=== PATIENT | female | born 1975 | race Caucasian/White ===

== ENCOUNTER → 2017-11-01 | Outpatient (CLI) | payer OTHER | LOC: FIMAGING 10:38 | PROVIDERS: ATTEND Family Medicine | DX: Z12.31 Encounter for screening mammogram for malignant neoplasm of breast (principal) ==

== ENCOUNTER 2018-02-28 16:09 | Emergency (ER) | payer OTHER ==
--- NOTE | 2018-02-28 18:11 | EDPHY ---
H & P Stated Complaint: Increased back pain and spasms. Injury 1 week ago. - Personal History Current Tetanus Diphtheria and Acellular Pertussis (TDAP): No - Medical/Surgical History Hx Asthma: No Hx Chronic Respiratory Disease: No Hx Diabetes: No Hx Cardiac Disease: No Hx Renal Disease: No Hx Cirrhosis: No Hx Alcoholism: No Hx HIV/AIDS: No Hx Splenectomy or Spleen Trauma: No Other PMH: Depression. - Social History Smoking Status: Never smoked Time Seen by Provider: 02/28/18 17:04 HPI/ROS: Chief complaint: Back pain History of present illness: This is a 42-year-old female who presents to the emergency department for ongoing back pain. The pain is in the left lower aspect of the back. She describes a soreness. She has had pain for the last week. 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 She feels this has been causing the pain. She has been taking Skelaxin and using topical musculoskeletal creams but pain persists. She denies other precipitating factors such as direct trauma. She denies any midline spine pain. She denies pain radiating into the legs. No paresthesias, weakness or paralysis or bowel or bladder dysfunction. No fever. She is requesting no narcotics or benzodiazepines as part of treatment. Review of systems: A 10 point review of systems was obtained and other than described above was negative (Kwan Dejesus) - Physical Exam Exam: General Appearance: Alert, nontoxic. Eyes: Pupils equal and round no injection. Respiratory: Chest is non tender, lungs are clear to auscultation. Cardiac: regular rate and rhythm Gastrointestinal: Abdomen is soft and non tender, no masses, bowel sounds normal. Musculoskeletal: Neck is supple and non tender. Spine is nontender to palpation along its entire length. No crepitus, bony deformity or step-off. Mild tenderness the left lower lumbar paraspinal muscles. Extremities have full range of motion and are non tender. Patient is ambulating without difficulty. Skin: No rashes or lesions. (Kwan Dejesus) Constitutional: Initial Vital Signs Temperature (C) 36.6 C 02/28/18 16:12 Heart Rate 72 02/28/18 16:12 Respiratory Rate 16 02/28/18 16:12 Blood Pressure 119/63 02/28/18 16:12 O2 Sat (%) 98 02/28/18 16:12 O2 Delivery Mode Room Air Allergies/Adverse Reactions: codeine [Codeine] Allergy (Severe, Verified 04/15/10 22:31) Other-Enter Comments Home Medications: Medication Instructions Recorded Cymbalta 04/15/10 GEODON 04/15/10 KLONOPIN 04/15/10 Lamictal 04/15/10 Naproxen 500 mg PO BID #10 tablet 02/28/18 Medical Decision Making ED Course/Re-evaluation: Patient seen under the supervision of my secondary supervising physician Dr. Miriam Anna. Patient presents to the emergency department for left lumbar paraspinal muscle soreness. She is nontoxic. Vital signs are stable. Physical exam is benign. I believe this is musculoskeletal pain. My suspicion for more serious pathology is low given it is not midline, she has a nonfocal neurologic exam, no trauma, no fever. I have discussed symptomatic care including naproxen, Tylenol, continuing Skelaxin. She is to follow up with a primary care doctor for recheck. Strict return precautions are given. The patient voiced understanding and agreement with plan. (Kwan Dejesus) This patient was evaluated and managed by the physician distribution center assistant. I agree with the plan of care. I am the secondary supervising physician. (Miriam Anna) Differential Diagnosis: Including but not limited to sprain or strain, herniated intervertebral disc, unlikely sciatica, or spinal cord issue such as cauda equina syndrome or abscess (Kwan Dejesus) Departure - Departure Disposition: Home, Routine, Self-Care Clinical Impression: Back pain Condition: Good Instructions: Back Pain (ED) Additional Instructions: Follow-up with your primary care doctor next week for recheck Use the naproxen 500 mg every 12 hr as needed for pain In addition You can take Tylenol 650 mg every 6 hours as needed for pain Continue to take the metaxalone as prescribed You can apply lidocaine patches to your back as well If symptoms worsen or new symptoms develop return to the emergency department for recheck Referrals: Margaret Madrid MD [Primary Care Provider] - As per Instructions Stand Alone Forms: Work Excuse Prescriptions: Naproxen 500 mg PO BID #10 tablet
[2018-02-28 18:44] VITALS: BP 109/70
== END 2018-02-28 18:42 | disposition home or self-care (01) ==
DX: M54.5 Low back pain (principal); X50.1XXA Overexertion from prolonged static or awkward postures, initial encounter; Y99.0 Civilian activity done for income or pay

== ENCOUNTER → 2018-03-13 | Outpatient (CLI) | payer OTHER | LOC: FIMAGING 16:23 | PROVIDERS: ATTEND Family Medicine | DX: M51.36 Other intervertebral disc degeneration, lumbar region (principal) ==

== ENCOUNTER → 2018-03-19 | Outpatient (CLI) | payer OTHER | LOC: FIMAGING 14:06 | PROVIDERS: ATTEND Neurological Surgery | DX: M51.37 Other intervertebral disc degeneration, lumbosacral region (principal) ==